=== PATIENT | male | born 1990 | race Caucasian/White ===

== ENCOUNTER 2016-07-29 13:57 | Emergency (ER) | payer BC, OTHER ==
[~2016-07-29] VITALS: Ht 182.9 cm; Wt 72.6 kg
[2016-07-29 14:45] VITALS: BP 110/65
[2016-07-29] MEDS ORDERED: Ketorolac 30mg Inj IM ONE (14:45)
[2016-07-29] MEDS ORDERED: Methocarbamol 750mg tab ORAL ONE (14:45)
[2016-07-29] MEDS ORDERED: IBUPROFEN600 MG ORAL (15:10)
[2016-07-29] MEDS ORDERED: ROBAXIN-750750 MG PO (15:10)
[2016-07-29 15:20] VITALS: BP 110/65
--- NOTE | 2016-07-29 15:37 | Emergency Room Report ---
History of Present Illness General Chief Complaint: Lower Back Pain or Injury Source: Patient Present Illness HPI The patient is a 26-year-old male presenting for lower back pain. The patient states that he was lifting weights and felt pain and a popping sensation of the lower back one week prior. The pain has decreased and is now a 7/10 dull ache. The patient has tried herbal medications which have not helped. Pain is worse with twisting and bending over. Patient states pain does radiate down both legs. Patient denies prior injury to the back. The patient denies any difficulty walking, numbness or tingling, incontinence. Allergies: Coded Allergies: No Known Allergies (Unverified , 07/29/16) Patient History Past Medical History: see triage record Pertinent Family History: none Reviewed Nursing Documentation: PMH: Agreed, PSxH: Agreed Nursing Documentation-PMH Past Medical History: No Stated History Review of Systems All Other Systems: negative except mentioned in HPI Physical Exam Vital Signs Date Time Temp Pulse Resp B/P Pulse Ox O2 Delivery O2 Flow Rate FiO2 07/29/16 14:35 98.1 74 14 118/71 97 Room Air Sp02 EP Interpretation: reviewed, normal General Appearance: no apparent distress, alert, GCS 15, non-toxic Head: normocephalic, atraumatic Eyes: bilateral eye PERRL, bilateral eye normal inspection ENT: hearing grossly normal, normal pharynx, no angioedema, normal voice Neck: full range of motion, supple/symm/no masses Genitourinary: normal inspection, no CVA tenderness Musculoskeletal: gait/station normal, normal range of motion, tender - TTP over bilat L spine paraspinous muscles Neurologic: alert, oriented x3, responsive, motor strength/tone normal, sensory intact, normal gait, speech normal Psychiatric: judgement/insight normal, memory normal, mood/affect normal, no suicidal/homicidal ideation Reflexes: 3+ bicep (R), 3+ bicep (L), 3+ tricep (R), 3+ tricep (L), 3+ knee (R) , 3+ knee (L) Skin: normal color, no rash, warm/dry, well hydrated Lymphatic: no adenopathy Medical Decision Making PA Attestation Dr. Bustillos is my supervising physician. Patient management was discussed with my supervising physician Diagnostic Impression: Primary Impression: Lumbar strain ER Course The patient is a 26-year-old male presenting for lower back pain. Ddx considered include but not limited to lumbar strain, degenerative disease, cauda equina syndrome, chronic pain Physical exam: Vitals are within normal limits. No apparent distress Lumbar spine: There is bilateral paraspinous tenderness to palpation. Full active range of motion. Normal gait. No ecchymosis no edema. SILT. No midline TTP or step-offs The patient is given Toradol and Robaxin for pain with good relief. The patient is discharged home with a prescription for Motrin and Robaxin he needs to followup with PMD as discussed. Patient is advised he may need an MRI if pain persists or worsens. ER precautions given Last Vital Signs Date Time Temp Pulse Resp B/P Pulse Ox O2 Delivery O2 Flow Rate FiO2 07/29/16 14:35 98.1 74 14 118/71 97 Room Air Status: improved Disposition: HOME, SELF-CARE Condition: Improved Scripts Methocarbamol* (ROBAXIN-750*) 750 Mg Tablet 750 MG PO TID, #21 TAB 0 Refills Prov: VENUS HOPKINS.A. 07/29/16 Ibuprofen* (MOTRIN*) 600 Mg Tablet 600 MG ORAL Q8H Y for For Pain, #30 TAB 0 Refills Prov: VENUS HOPKINS P.A. 07/29/16 Patient Instructions: Lumbosacral Strain, Back Pain, Adult Additional Instructions: I discussed my findings with the patient. All questions and concerns have been answered. Treatment and medication compliance have been addressed. I advised the patient that they need to follow up with PMD in 3-5 days. Return to ED if pain remains or worsens, numbness or tingling occurs, new rash is noticed, fever is noticed, or if needed for any reason. Patient verbalized understanding of discharge instructions. The patient is advised he may need to obtain an MRI if pain continues or worsens VENUS HOPKINS Jul 29, 2016 15:36
== END 2016-07-29 15:20 | disposition home or self-care (01) ==
LOC: EMR 14:28
DX: S39.012A Strain of muscle, fascia and tendon of lower back, initial encounter (principal); X50.0XXA Overexertion from strenuous movement or load, initial encounter; Y93.79 Activity, other specified sports and athletics; Y92.9 Unspecified place or not applicable; Y99.9 Unspecified external cause status
CPT/HCPCS: 96372; 99284; J1885